=== PATIENT | male | born 1995 | race Caucasian/White ===

== ENCOUNTER 2017-03-31 11:00 | Inpatient (IN) | payer OTHER ==
[~2017-03-31] VITALS: Ht 182.9 cm; Wt 79.4 kg
--- NOTE | ~2017-03-31 | DS ---
Unit #: [id number] #: [id number] Patient: MADHURI PLATT JR [id number] [place] [address] [id number] I MR#: [id number] NAME: MADHURI PLATT JR ROOM: 73 Age: 21 Sex: M Admission Date: 03/31/2017 : 1995 Discharge Date: 04/03/2017 Attending Physician: Salvador Ibrahim M.D. DISCHARGE SUMMARY REASON FOR ADMISSION Detox. DIAGNOSTIC STUDIES LABORATORY RESULTS: Remarkable for urine drug screen positive for opioid. HOSPITAL COURSE The patient was admitted to inpatient unit on 03/31/2017 and discharged on 04/03/2017. The patient was treated with group therapy, individual therapy, chemical dependency group, detox protocol, and detox monitoring. The patient was responsive to treatment. Subsequently, the patient was discharged with a plan to follow up in outpatient program. DISCHARGE MEDICATIONS None. DISCHARGE DIAGNOSES Psychiatric: Opioid use disorder, severe, F11.20. Secondary diagnosis: Deferred. Medical diagnosis: None. Stressors: Psychosocial stressors. DISCHARGE INSTRUCTIONS The patient to follow up in outpatient clinic as per web content & social media manager. CONDITION ON DISCHARGE The patient was pleasant and cooperative. Denied any psychotic symptom or any suicidal ideation. PROGNOSIS Guarded. DIET AND ACTIVITY As tolerated. Dictated by... Salvador Ibrahim M.D. [facility] [place] Unit #: [id number] #: [id number] Patient: MADHURI PLATT JR TD: 04/03/2017 13:48 JOB #: [id number] DISCHARGE SUMMARY Page 1 of 1 X Salvador bIrahim MD X DISCHARGE SUMMARY
--- NOTE | ~2017-03-31 | PN ---
Unit #: [id number] #: [id number] Patient: MADHURI PLATT JR [id number] [facility] [address] [place] [address] [id number] I MR#: [id number] NAME: MADHURI PLATT JR ROOM: P173 Age: 21 Sex: M Admission Date: 03/31/2017 : 1995 Attending Physician: Salvador Ibrahim M.D. Admitting Physician: Sourav Campbell PROGRESS NOTES DATE OF SERVICE: 04/02/2017 DISCUSSION Madhuri is a 21-year-old male, seen on 04/02/2017. The patient interviewed, chart reviewed, and obtained information from nursing staff. The patient compliant and cooperative. Vital signs; temperature 98.5, heart rate 67, respiratory rate 17, and blood pressure 118/64. The patient still having some withdrawal symptoms from opioids. REVIEW OF SYSTEMS Complete review of systems unremarkable. MENTAL STATUS EXAMINATION General appearance, the patient dressed casually. Attention span and concentration, fair. Oriented in time, place, and person. Mood and affect, labile. Speech, monotone. Thought process, concrete. The patient denied any thoughts of harming self or others, but withdrawn, isolative, and seclusive. Recent and remote memory, poor. Insight and judgment, poor. DIAGNOSIS Opioid use disorder, severe, F11.20. ASSESSMENT AND PLAN Continue with current medication and therapeutic protocol. If needed, consider further adjustment of medication. Dictated by... Sourav Campbell/chet TD: 04/03/2017 20:24 JOB #: [id number] Unit #: [id number] #: [id number] Patient: MADHURI PLATT JR PEANIHARIKA PROGRESS NOTES Page 1 of 1 X Salvador Ibrahim MD PROGRESS NOTE
--- NOTE | ~2017-03-31 | PA ---
Unit #: [id number] #: [id number] Patient: MADHURI PLATT JR [id number] [facility] [address] [place] [address] [id number] I MR#: [id number] NAME: MADHURI PLATT JR ROOM: P173 Age: 21 Sex: M Admission Date: 03/31/2017 : 1995 Date of Assessment: Attending Physician: Salvador Ibrahim M.D. Admitting Physician: Salvador Ibrahim M.D. PSYCHIATRIC ASSESSMENT INFORMANT Patient reliability, fair informant; chart reliability, good. CHIEF COMPLAINT Detoxing from heroin. HISTORY OF PRESENT ILLNESS Mr. Lomeli is a 21-year-old female, who presented with relapsing from alcohol. The patient reported that he was sober for almost 180 days and relapsed on new year and has been using daily since then. The patient denied any history of any blackouts, HIV, hepatitis, but history of withdrawal symptom and IV drug use. The patient reported muscle cramping, abdominal cramping, diaphoresis, irritability, and nervousness. The patient reported tobacco use, age of onset 10; opioid, age of onset 18. The patient denied any suicidal or homicidal ideation. Denied any psychotic symptom. The patient scored 18 on COWS score. The patient reported using half a gram of heroin daily, last use yesterday. The patient reported current withdrawal symptoms, tremor, stomach cramping, joint aches, restlessness, running nose, anxiety, irritability, needing inpatient admission for detox. PAST PSYCHIATRIC HISTORY Unremarkable for any history of previous treatment. FAMILY HISTORY AND SOCIAL HISTORY The patient has a good support system. No history of abuse. No history of any legal problems. A history of opioid abuse in mother and father. According to the intake reports, history of stealing from [employer], past charges. No court data. MEDICAL HISTORY Unremarkable for any chronic medical illness. Musculoskeletal; muscle strength and tone, no atrophy or abnormal movement. Gait normal. MEDICATION HISTORY None. ALLERGIES No known drug allergies. SUBSTANCE ABUSE HISTORY Please see above. Unit #: [id number] #: [id number] Patient: MADHURI PLATT JR REVIEW OF SYSTEMS HEENT: Eyes, clear. Ears, nose, mouth, and throat; clear. CARDIOVASCULAR: Unremarkable. RESPIRATORY: Unremarkable. GI: Unremarkable. : Unremarkable. SKIN: Unremarkable. LYMPH NODE: Unremarkable. NEUROLOGIC: Unremarkable. ENDOCRINE: Unremarkable. HEMATOLOGIC: Unremarkable. ALLERGIC/IMMUNOLOGIC: Unremarkable. MUSCULOSKELETAL: Muscle strength and tone, no atrophy or abnormal movement. Gait normal. MENTAL STATUS EXAMINATION CONSTITUTIONAL: Measurement of vital signs; 98.5, 69, 17, and 162/95, height 6 feet, and weight 175 pounds. GENERAL APPEARANCE: The patient dressed casually. The patient did not show any facial deformity. MUSCULOSKELETAL: Please see above. PSYCHIATRIC EXAMINATION Description of speech; regular rate. Normal volume, normal articulation, coherent. Description of thought process, goal directed. Description of association, intact. Description of abnormal psychotic thinking; the patient denied any hallucination or delusions, but mood lability, substance abuse. Description of the patient's judgment, concerning everyday activity, poor. Social situation, poor. Concerning psychiatric condition, poor. Complete mental status examination; oriented in time, place, and person. Recent and remote memory, fair. Attention span and concentration, fair. Language, able to name object and repeat phrases. Fund of knowledge, aware of current event. Past history and vocabulary, intact. Mood and affect, sad and dysphoric. Insight and judgment, fair to poor. ASSETS AND LIABILITIES Assets, the patient is able to articulate and able to take care of her ADL. Liability, history of depression and history of substance abuse. ADMITTING DIAGNOSES Psychiatric: Opioid use disorder, severe, F11.20. Secondary diagnosis: Deferred. Medical diagnosis: None. Stressors: Psychosocial stressors. PSYCHIATRIC PLAN AND TREATMENT GOAL AND DISCHARGE PLAN 1. Advised to admit the patient on the inpatient unit. Provide safe, supportive, and structured environment. 2. Ordered labs; CBC, CMP, UA, UDS, detox protocol and detox monitoring. The patient to attend all the programming group therapy, individual therapy, chemical dependency group. Treatment goal to attain euthymic mood, gain insight into his problem, and learn coping skills. DISCHARGE PLAN Unit #: [id number] #: [id number] Patient: MADHURI PLATT JR Plan to stabilize the patient and consider followup in outpatient program. ESTIMATED LENGTH OF STAY 5 days. Dictated by... Salvador Ibrahim M.D. ELAINE/chet TD: 04/02/2017 05:34 JOB #: [id number] PSYCHIATRIC ASSESSMENT Page 1 of 1 X Salvador Ibrahim MD PSYCHIATRIC ASSESSMENT
--- NOTE | ~2017-03-31 | PN ---
Unit #: [id number] #: [id number] Patient: MADHURI PLATT JR [id number] [facility] [address] [place] [address] [id number] I MR#: [id number] NAME: MADHURI PLATT JR ROOM: P173 Age: 21 Sex: M Admission Date: 03/31/2017 : 1995 Attending Physician: Salvador Ibrahim M.D. Admitting Physician: Sourav Campbell NOTES DATE OF SERVICE 04/01/2017 DISCUSSION Madhuri is a 21-year-old male seen on 04/01/2017. Patient interviewed, chart reviewed. Obtained information from nursing staff. Patient's vital signs 98.5, 73, 17, 148/92. The patient reported still having withdrawal symptom, withdrawal, isolative, guarded. Complete review of systems unremarkable. MENTAL STATUS EXAMINATION General appearance, patient dressed casually. Attention span and concentration fair. Oriented to time, place and person. Mood and affect labile. Speech monotone. Thought process concrete. Patient denied any thoughts of harming self or others. Recent and remote memory poor. Insight and judgement poor. DIAGNOSES Opioid use disorder severe. ASSESSMENT/PLAN Advise to continue with current medication and therapeutic protocol. If needed consider further adjustment of medication. Dictated by... Sourav Campbell/terra TD: 04/03/2017 05:48 JOB #: [id number] QIAN SIMPSON NOTES Page 1 of 1 X Salvador Ibrahim MD X PROGRESS NOTE
--- NOTE | ~2017-03-31 | HP ---
Unit #: [id number] #: [id number] Patient: MADHURI PLATT JR [id number] [place] [address] [id number] I MR#: [id number] NAME: MADHURI PLATT JR ROOM: P173 Age: 21 Sex: M Admission Date: 03/31/2017 : 1995 Attending Physician: Salvador Ibrahim M.D. Admitting Physician: Salvador Ibrahim M.D. HISTORY AND PHYSICAL HISTORY OF PRESENT ILLNESS The patient is a 21-year-old male admitted to [facility] on 03/31/2017 to detox from heroin. PAST MEDICAL HISTORY 1. Heroin abuse. 2. Nicotine dependence. PAST SURGICAL HISTORY Patient denies. ALLERGIES No known drug allergies. SOCIAL HISTORY He is unemployed. He lives alone. Smokes 1 pack of cigarettes daily and uses half gram of heroin per day. FAMILY HISTORY Noncontributory. REVIEW OF SYSTEMS CONSTITUTIONAL: No fever or chills. HEENT: Denies any sore throat, ear pain or runny nose. CARDIOVASCULAR: Denies chest pain, irregular heart rhythm or palpitations. CHEST: Denies shortness of breath or cough. No hemoptysis. GASTROINTESTINAL: Denies nausea, vomiting, diarrhea or chronic constipation. ENDOCRINE: Denies history of increased thirst or urination. No recent significant weight loss or gain. GENITOURINARY: Denies dysuria, frequency, or hematuria. SKIN: Denies any rashes. HEMATOLOGIC: Denies history of increased bleeding or bruising. MUSCULOSKELETAL: Denies any hot, swollen joints. No generalized muscle pain. NEUROLOGIC: Denies problems with vision or speech. No frequent, severe headaches. No numbness, tingling or weakness in any extremities. Denies loss of bladder or bowel control. CURRENT MEDICATIONS Patient is not on any home medications. PHYSICAL EXAMINATION Unit #: [id number] #: [id number] Patient: MADHURI PLATT JR GENERAL: He is awake, alert, oriented, in no acute distress. VITAL SIGNS: Temperature 98.5, heart rate 69, respirations 17, blood pressure 162/95. HEIGHT: 6 feet 0. WEIGHT: 175 pounds. SKIN: Warm and dry without rash or lesion. HEENT: Normocephalic. TMs not viewed. Oral and nasal passages clear. Conjunctivae clear. PERRLA. EOMs intact. NECK: Supple without lymphadenopathy or thyromegaly. HEART: Regular rate and rhythm without murmur. LUNGS: Clear. ABDOMEN: Soft, nontender. : Not done. EXTREMITIES: No evidence of cyanosis, clubbing or edema. Moves all without focal deficit. NEUROLOGICAL: Grossly within normal limits. Cranial Nerves: II: Visual perez are intact. III, IV AND : Extraocular movements are intact. Pupils are equal, round and reactive to light. V: Facial sensation is grossly normal. VII: Facial movements and expression are normal. VIII: Auditory acuity grossly intact. IX, X: Uvula is midline. Phonation is normal. XI: Patient shrugs shoulders and turns head normally. XII: Tongue protrudes in the midline. Sensory and Motor Function: Sensory and motor sensation is grossly normal. Motor: moves all extremities well. Coordination: Gait is normal. Deep Tendon Reflexes: Intact. IMPRESSION 1. Psychiatric admission. 2. Heroin dependence. 3. Nicotine dependence. RECOMMENDATIONS PSYCHIATRIC: Per psychiatrist. MEDICAL: No contraindication to participate in facility's activities. MEDICAL PROGNOSIS Good. MEDICAL CONDITION Stable. Dictated by... Kalpesh Jones/chepe TD: 04/01/2017 14:18 JOB #: [id number] Unit #: [id number] #: [id number] Patient: MADHURI PLATT HISTORY AND PHYSICAL Page 1 of 1 X JEERMY AGUILAR APRN HISTORY AND PHYSICAL
[2017-04-01 10:55] LABS: BASOPHIL% 0.4 % (0-2.5); EOSINOPHIL# 0.1 X10e3 (0-0.7); EOSINOPHIL% 1.2 % (0.0-7.0); HEMOGLOBIN 14.1 gm/dL (13.0-16.0); LYMPHOCYTE# 1.8 X10e3 (1.0-3.5); LYMPHOCYTE% 31.5 % (17.0-45.0); MEAN CELL VOLUME 93.9 FL (83-96); MEAN CORPUSCULAR HEMOGLOBIN 31.5 PG (28-34); MEAN CORPUSCULAR HGB CONC 33.6 g/dL (30-36); MEAN PLATELET VOLUME 8.5 FL (6.5-11.5); MONOCYTE# 0.5 X10e3 (0-1.0); MONOCYTE% 8.6 % (3.0-12.0); NEUTROPHIL# 3.3 X10e3 (1.5-7.1); NEUTROPHIL% 58.3 % (40-75); PLATELET COUNT 163 X10e3 (140-420); RED BLOOD COUNT 4.47 X10e (3.90-5.60); WHITE BLOOD COUNT 5.6 X10e3 (4.0-10.5)
[2017-04-01 11:03] LABS: DIFF IND NO
[2017-04-01 11:28] LABS: ALBUMIN SERUM 3.9 g/dL (3.5-5.0); BILIRUBIN,TOTAL 0.5 mg/dL (0.2-2.0); BUN/CREATININE RATIO 13.75; CALCIUM SERUM 9.4 mg/dL (8.4-10.2); CREATININE SERUM 0.8 mg/dL (0.6-1.4); POTASSIUM 4.1 mmol/L (3.5-5.1); PROTEIN TOTAL SERUM 6.7 g/dL (6.0-8.3)
[2017-04-02 12:33] LABS: URINE APPEARANCE CLEAR; URINE BILIRUBIN NEG (NEG); URINE BLOOD NEG (NEG); URINE COLOR DK YELLOW; URINE GLUCOSE NEG (NEG); URINE KETONE NEG (NEG); URINE LEUKOCYTE ESTERASE NEG (NEG); URINE NITRATE NEG (NEG); URINE PROTEIN NEG (NEG); URINE SPECIFIC GRAVITY 1.016 (1.003-1.035); URINE UROBILINOGEN 0.2 MG/DL (NEG)
[2017-04-02 12:55] LABS: AMPHETAMINE NEG (NEG); BARBITURATES NEG (NEG); BENZODIAZEPINES NEG (NEG); COCAINE NEG (NEG); MARIJUANA NEG (NEG); OPIATES POS (NEG); TRICYCLIC ANTIDEPRESSANTS NEG (NEG); U METHADONE NEG (NEG)
== END 2017-04-03 09:30 | DRG 897 ==
LOC: P1E 14:15
PROVIDERS: Psychiatry & Neurology Psychiatry
PROC: HZ2ZZZZ Detoxification Services for Substance Abuse Treatment (ICD-10-PCS; principal; 2017-03-31)
DX: F11.20 Opioid dependence, uncomplicated (principal); F17.210 Nicotine dependence, cigarettes, uncomplicated
CPT/HCPCS: 80053; 80307; 81003; 85025; 86592